=== PATIENT | female | born 1945 | race Caucasian/White ===

== ENCOUNTER 2020-11-21 08:14 | Outpatient (CLI) | payer MEDICARE, OTHER ==
[2020-11-21 14:48] LABS: BASOPHILS # (AUTO) 0.1 10^3/uL (0.0-0.1); EOSINOPHILS # (AUTO) 0.1 10^3/uL (0.0-0.7); EOSINOPHILS % (AUTO) 2.3 %; HCT - HEMATOCRIT 41.9 % (37.0-47.0); HGB - HEMOGLOBIN 13.3 g/dL (12.0-16.0); LYMPHOCYTES # (AUTO) 1.3 10^3/uL (1.5-3.5); MEAN CORPUSCULAR HEMOGLOBIN 30.6 pg (27.0-31.0); MEAN CORPUSCULAR HGB CONC 31.7 g/dL (32.0-36.0); MEAN CORPUSCULAR VOLUME 96.3 fL (81.0-99.0); MEAN PLATELET VOLUME 10.2 fL (7.9-10.8); MONOCYTES # (AUTO) 0.3 10^3/uL (0.0-1.0); MONOCYTES % (AUTO) 6.4 %; NEUTROPHILS # (AUTO) 3.3 10^3/uL (1.5-6.6); NEUTROPHILS % (AUTO) 64.1 %; PLT - PLATELET COUNT 264 10^3/uL (130-450); RED BLOOD COUNT 4.35 10^6/uL (4.20-5.40); RED CELL DISTRIBUTION WIDTH 12.6 % (12.0-15.0); WHITE BLOOD COUNT 5.2 x10^3/uL (4.8-10.8)
== END 2020-11-21 08:15 | disposition home or self-care (01) ==
LOC: LAB.S 08:14
PROVIDERS: ATTEND Internal Medicine
DX: R79.89 Other specified abnormal findings of blood chemistry (principal)
CPT/HCPCS: 36415; 85025

== ENCOUNTER 2021-06-06 08:44 | Outpatient (CLI) | payer MEDICARE, OTHER | END 2021-06-06 08:45 | disposition home or self-care (01) | LOC: LAB.S 08:44 | PROVIDERS: ATTEND Naturopath | DX: Z01.89 Encounter for other specified special examinations (principal) | CPT/HCPCS: 36415 ==

== ENCOUNTER 2021-11-28 08:39 | Outpatient (CLI) | payer MEDICARE, OTHER ==
[2021-11-28 15:24] LABS: CHOL/HDL RATIO 2.2 (<4.4); CHOLESTEROL 211 mg/dL; HDL CHOLESTEROL 97 mg/dL; LDL CHOLESTEROL,CALCULATED 103 mg/dL; LDL/HDL RATIO 1.1 (<4.4); TRIGLYCERIDES 53 mg/dL; VLDL CHOLESTEROL 11 mg/dL
== END 2021-11-28 08:40 | disposition home or self-care (01) ==
LOC: LAB.S 08:39
PROVIDERS: ATTEND Internal Medicine
DX: Z00.00 Encounter for general adult medical examination without abnormal findings (principal)
CPT/HCPCS: 36415; 80061; 83721

== ENCOUNTER 2022-12-02 08:31 | Outpatient (CLI) | payer MEDICARE, OTHER | END 2022-12-02 08:32 | disposition home or self-care (01) | LOC: LAB.S 08:31 | PROVIDERS: ATTEND Internal Medicine | DX: Z00.00 Encounter for general adult medical examination without abnormal findings (principal) | CPT/HCPCS: 36415; 80053; 80061; 83721; 84439; 84443; 85025 ==

== ENCOUNTER 2023-06-05 07:18 | Outpatient (CLI) | payer MEDICARE, OTHER | END 2023-06-05 07:19 | disposition home or self-care (01) | LOC: LAB.S 07:18 | PROVIDERS: ATTEND Naturopath | DX: E78.5 Hyperlipidemia, unspecified (principal) | CPT/HCPCS: 36415 ==

== ENCOUNTER 2024-01-07 08:13 | Outpatient (CLI) | payer MEDICARE, OTHER | END 2024-01-07 08:14 | disposition home or self-care (01) | LOC: LAB.S 08:13 | PROVIDERS: ATTEND Internal Medicine | DX: R79.89 Other specified abnormal findings of blood chemistry (principal) | CPT/HCPCS: 36415; 82024; 82533 ==